=== PATIENT | female | born 1960 | race Caucasian/White ===

== ENCOUNTER → 2020-10-12 | Outpatient (CLI) | payer MEDICARE | LOC: KOH-I 13:54 | DX: E04.1 Nontoxic single thyroid nodule (principal); M25.552 Pain in left hip | CPT/HCPCS: 73502; 76536 ==

== ENCOUNTER → 2021-08-07 | Outpatient (CLI) | payer MEDICARE | LOC: KOH-I 13:00 | DX: E04.1 Nontoxic single thyroid nodule (principal) | CPT/HCPCS: 76536 ==